=== PATIENT | male | born 2000 | race Caucasian/White ===

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

== ENCOUNTER 2022-03-25 20:09 | Emergency (ER) | payer MEDICAID, OTHER ==
[~2022-03-25] VITALS: Ht 180.3 cm; Wt 105.0 kg
[2022-03-25 20:29] VITALS: BP 140/99
[2022-03-25] MEDS ORDERED: LIDOCAINE HCL 1% 20ML VIAL (Pyxis) INJ INFIL ONE (21:00)
[2022-03-25] MEDS ORDERED: TETANUS, DIPHTHERIA, PERTUSSIS VAC/PF 0.5ML (>10YR OLD) IM ONE (21:00)
[2022-03-25] MEDS ORDERED: LIDOCAINE HCL 1% 10 MG/ML 10ML VIAL INJ SCH (21:07)
== END 2022-03-25 21:40 | disposition home or self-care (01) ==
LOC: ER 20:09
DX: S61.011A Laceration without foreign body of right thumb without damage to nail, initial encounter (principal); W25.XXXA Contact with sharp glass, initial encounter; Y93.89 Activity, other specified; Y92.018 Other place in single-family (private) house as the place of occurrence of the external cause
CPT/HCPCS: 12001; 99282; J3490; 90715

== ENCOUNTER 2022-04-01 20:58 | Emergency (ER) | payer OTHER ==
[~2022-04-01] VITALS: Ht 180.3 cm; Wt 104.5 kg
[2022-04-01 22:40] VITALS: BP 132/80
== END 2022-04-01 22:43 | disposition home or self-care (01) ==
LOC: ER 22:04
DX: Z48.02 Encounter for removal of sutures (principal)
CPT/HCPCS: 99281; Z7610